=== PATIENT | female | born 1960 | race Caucasian/White ===

== ENCOUNTER 2017-03-08 15:24 | Emergency (ER) | payer OTHER ==
[~2017-03-08] VITALS: Ht 152.4 cm; Wt 47.6 kg
[2017-03-08] MEDS ORDERED: CLINDAMYCIN HCL 150 MG CAPSULE PO ONE ×2 (17:01→17:30)
--- NOTE | 2017-03-08 17:08 | NUR ---
PT. VERBALIZED UNDERSTANDING OF AFTERCARE INSTRUCTIONS.Patient discharged to home in stable condition. Written and verbal after care instructions given. Patient verbalizes understanding of instruction.
[2017-03-08 17:09] VITALS: BP 99/54
== END 2017-03-08 17:09 | disposition home or self-care (01) ==
LOC: ER 15:30
DX: L03.113 Cellulitis of right upper limb (principal); F17.200 Nicotine dependence, unspecified, uncomplicated
CPT/HCPCS: A4606; Z7610

== ENCOUNTER 2019-05-28 23:18 | Emergency (ER) | payer OTHER ==
[~2019-05-28] VITALS: Ht 152.4 cm; Wt 48.1 kg
[2019-05-28 23:34] VITALS: BP 125/77
== END 2019-05-28 23:59 | disposition home or self-care (01) ==
LOC: ER 23:21
DX: S00.81XA Abrasion of other part of head, initial encounter (principal); L03.211 Cellulitis of face; F17.200 Nicotine dependence, unspecified, uncomplicated; Z98.890 Other specified postprocedural states; W55.03XA Scratched by cat, initial encounter; Y93.89 Activity, other specified; Y92.89 Other specified places as the place of occurrence of the external cause; Y99.8 Other external cause status

== ENCOUNTER 2019-06-01 06:10 | Emergency (ER) | payer OTHER ==
[~2019-06-01] VITALS: Ht 152.4 cm; Wt 46.7 kg
--- NOTE | 2019-06-01 06:20 | NUR ---
PT IN BED.
--- NOTE | 2019-06-01 06:25 | NUR ---
PT IN BED RESTING COMFORTABLY. VS IS STABLE. MEDS GIVEN. PT HAS A SRACTH ON HER LEFT CHEEK. PT IS COMPLAINING OF PAIN IN HER NECK AND SHOULDER. WILL ENDORSE TO MORNING NURSE FOR LOREN.
[2019-06-01] MEDS ORDERED: PIPERACILLIN /TAZOBACTAM 3.375 G in IV D5W 50 ML IV ONE (07:00)
[2019-06-01] MEDS ORDERED: PIPERACILLIN /TAZOBACTAM 3.375 G VIAL IV ONE (07:13)
--- NOTE | 2019-06-01 07:27 | NUR ---
RECEIVED REPORT FROM ROSA SOUZA FOR LOREN
--- NOTE | 2019-06-01 08:51 | NUR ---
IV removed. Catheter intact and site benign. Pressure and 4x4 applied to site. No bleeding noted.Patient discharged to home in stable condition. Written and verbal after care instructions given. Patient verbalizes understanding of instruction.
[2019-06-01 08:52] VITALS: BP 112/64
== END 2019-06-01 08:52 | disposition home or self-care (01) ==
LOC: ER 06:13
DX: S00.81XD Abrasion of other part of head, subsequent encounter (principal); F17.200 Nicotine dependence, unspecified, uncomplicated; Z98.890 Other specified postprocedural states; X58.XXXD Exposure to other specified factors, subsequent encounter
CPT/HCPCS: 96365; 99283; J2543; J7030; J7060